=== PATIENT | male | born 1955 | race American Indian/Alaskan Native ===

== ENCOUNTER 2017-10-08 09:25 | Inpatient (IN) ==
[2017-10-02 12:30] LABS: Appearance,Urine CLOUDY; Bilirubin,Urine NEG (NEG); Color,Urine YELLOW; Glucose,Urine (UA) NEGATIVE (NEG); Leukocyte Esterase,Urine NEG /uL (NEG); Nitrate,Urine NEG (NEG); Protein,Urine NEG (NEG); Specific Gravity,Urine 1.012 (1.000-1.035); Urine Blood NEG mg/dL (<0.03); Urobilinogen,Urine NEG (NEG)
[2017-10-02 13:44] LABS: Blood Urea Nitrogen 20 mg/dl (8-23)
[2017-10-02 13:48] LABS: Basophils # (Auto) 0 K/mcL (0.0-0.3); Basophils % (Auto) 0.4 % (0.0-2.0); Eosinophils # (Auto) 0.2 K/mcL (0.0-0.7); Eosinophils % (Auto) 2.3 % (0.0-7.0); Granulocytes % (Auto) 61.2 % (38.0-78.0); Lymphocytes % (Auto) 24.5 % (15.5-49.0); Mean Cell Volume 92.9 fL (80.0-100.0); Mean Corpuscular HGB Conc 32.7 g/dL (31.0-36.0); Mean Corpuscular Hemoglobin 30.4 pg (26.0-34.0); Monocytes # (Auto) 0.9 K/mcL (0.1-0.9); Monocytes % (Auto) 11.6 % (1.0-12.0); Platelet Count 159 K/mcL (140-440); RBC 5.27 M/mcL (4.50-5.90); Red Cell Distribution Width 14.6 % (11.5-14.5)
[~2017-10-08 09:25] MED LIST: ACETAMINOPHEN 500 MG TABLET PO SCH; CELECOXIB 200 MG CAPSULE PO SCH; PREGABALIN 75 MG CAPSULE PO SCH; ceFAZolin 1 GM VIAL IV SCH; oxyCODONE 10 MG TAB.ER.12H PO SCH
[2017-10-08] MEDS ORDERED: LIDOCAINE HCL/PF 100 MG/5 ML SYRINGE IV ONE (10:55)
[2017-10-08] MEDS ORDERED: MIDAZOLAM 2 MG/2 ML VIAL IV ONE (10:55)
[2017-10-08] MEDS ORDERED: SUCCINYLCHOLINE 20 MG/ML ML IV ONE (10:55)
[2017-10-08] MEDS ORDERED: TRANEXAMIC ACID 1,000 MG/10 ML VIAL IV ONE ×2 (10:55→12:22)
[2017-10-08] MEDS ORDERED: GLYCOPYRROLATE 0.2 MG/ML VIAL IV ONE (10:55)
[2017-10-08] MEDS ORDERED: fentaNYL 100 MCG/2 ML VIAL IV ONE (10:55)
[2017-10-08] MEDS ORDERED: ONDANSETRON 4 MG/2 ML VIAL IV ONE (10:55)
[2017-10-08] MEDS ORDERED: PROPOFOL 200 MG/20 ML VIAL IV ONE (10:55)
[2017-10-08] MEDS ORDERED: DOXAPRAM HCL 20 MG/ML IV ONE (10:55)
[2017-10-08] MEDS ORDERED: KETAMINE 100 MG/ML ML IV ONE (10:55)
[2017-10-08] MEDS ORDERED: GENTAMICIN SULFATE 800 MG/20 ML VIAL IR ONE (11:28)
--- NOTE | 2017-10-08 12:20 | Brief Operative Note ---
Date of procedure: 10/08/17 Pre-op diagnosis: right shoulder rca and bicep tendon tear Post-op diagnosis: same Procedure: right reverse tsa and bicep tenodesis Grafts/Implants: Yes Anesthesia: GETA Complications: none Complications Description: 10/08/17 12:19 none Surgeon: Christian Torrez Flotation Tank Operator: Ryder Gutierrez
[2017-10-08] MEDS ORDERED: IPRATROPIUM/ALBUTEROL 3 ML AMPUL.NEB NEB PRN ×2 (12:22→16:13)
[2017-10-08] MEDS ORDERED: ONDANSETRON 4 MG/2 ML VIAL IV PRN ×3 (12:22→15:15)
[2017-10-08] MEDS ORDERED: BENZOCAINE/MENTHOL 1 LOZENGE PO PRN ×2 (12:22→15:15)
[2017-10-08] MEDS ORDERED: METHOCARBAMOL 1,000 MG/10 ML VIAL IV PRN (12:22)
[2017-10-08] MEDS ORDERED: POLYETHYLENE GLYCOL 3350 17 GM PACKET PO PRN ×2 (12:22→15:15)
[2017-10-08] MEDS ORDERED: FLEETS ADULT ENEMA PR PRN ×2 (12:22→15:15)
[2017-10-08] MEDS ORDERED: HYDROcodone/APAP 10/325MG TABLET PO PRN (12:22)
[2017-10-08] MEDS ORDERED: BISACODYL 10 MG SUPP.RECT PR PRN ×2 (12:22→15:15)
[2017-10-08] MEDS ORDERED: fentaNYL 100 MCG/2 ML VIAL IV PRN (12:22)
[2017-10-08] MEDS ORDERED: MEPERIDINE 25 MG/ML SYRINGE IV PRN (12:22)
[2017-10-08] MEDS ORDERED: KETOROLAC 15 MG/ML VIAL IV PRN ×2 (12:22→15:15)
[2017-10-08] MEDS ORDERED: MAGNESIUM HYDROXIDE 30 ML ORAL.SUSP PO PRN ×2 (12:22→15:15)
[2017-10-08] MEDS ORDERED: PROMETHAZINE 25 MG/ML VIAL IV PRN (12:22)
[2017-10-08] MEDS ORDERED: TEMAZEPAM 15 MG CAPSULE PO PRN ×2 (12:22→15:15)
[2017-10-08] MEDS ORDERED: HYDROmorphone 2 MG/ML SYRINGE IV PRN ×4 (12:22→15:15)
[2017-10-08] MEDS ORDERED: ACETAMINOPHEN 325 MG TABLET PO PRN ×2 (12:22→15:15)
[2017-10-08] MEDS ORDERED: 0.45 % SODIUM CHLORIDE 1,000 ML IV SCH ×2 (12:30→15:15)
[2017-10-08] MEDS ORDERED: LACTATED RINGERS 1,000 ML IV SCH (12:30)
--- NOTE | 2017-10-08 12:51 | Operative Note ---
DATE OF OPERATION: 10/08/2017 PREOPERATIVE DIAGNOSIS: Right shoulder rotator cuff arthropathy and biceps tendinopathy. POSTOPERATIVE DIAGNOSIS: Right shoulder rotator cuff arthropathy and biceps tendinopathy. PROCEDURE: Right reverse total shoulder and biceps tenodesis. SURGEON: Christian Torrez MD ENVIRONMENTAL SERVICES COORDINATOR: Ryder Gutierrez PA-C ANESTHESIA: General LMA anesthesia. COMPLICATIONS: None. IMPLANTS: A size 40 glenosphere with Metaglene with a central screw measuring 40, peripheral screws measuring 24, 40 and 36. The stem was an 11 mm cementless stem with a standard thickness poly. COMPLICATIONS: None. ESTIMATED BLOOD LOSS: About 100 mL DESCRIPTION OF PROCEDURE: The patient was brought to the operating room and put to sleep with general LMA anesthesia. Once asleep, the patient had the right shoulder sterilely prepped and draped in the usual sterile fashion. A timeout was performed and confirmed this as the operative site. Ioban was placed over the skin. Preop antibiotics and tranexamic acid were given. We then proceeded with the case. An incision anteriorly was made, a deltopectoral approach was performed. Deltoid was retracted laterally and conjoint tendon medially. We released the subscap and biceps tendon was dislocated out of the bicipital groove and it was released and then repaired to the pectoralis major with 2 [id number] Ethibond stitches. We irrigated thoroughly and then dislocated the humeral head. We made our neck cut at the anatomical neck region, 30 degrees of retroversion and then we irrigated and subluxed the head posteriorly. We performed a 360 degree capsular release. We removed the labrum and the remnants of the biceps tendon, inferiorly released the capsule and released this back about 1 cm. We then placed a pin centrally in the glenoid, 10 degrees of inclination and reamed up to the size 40. We then placed the Metaglene into the bone. The central screw measured 40 mm with excellent purchase. Once done, we then placed screws. These measured 24, 36 and 40. These locked into place. We placed a 40 mm glenosphere with 2 mm of offset. Once this was done, we irrigated thoroughly and then prepared the humerus. This was broached up to size 11. We trialed the 11 and then placed the size 11 stem with a standard thickness poly. The patient tolerated this well. There was no complication. The shoulder was reduced. Full range of motion was achieved. We irrigated and repaired the deltopectoral approach with 2-0 Vicryl and closed the skin with 2-0 Vicryl and adhesive closure. The patient tolerated this well. The patient was fitted and given a DonJoy sling at the end of the case. RBH:ochoa Job ID: [id number] Doc ID: [id number] Christian Torrez MD
[2017-10-08] MEDS ORDERED: BUPIVACAINE W/EPI 0.5% 50 ML VIAL IJ ONE (13:05)
[2017-10-08] MEDS ORDERED: methylPREDNISolone SOD SUCC 125 MG/2 ML VIAL IV ONE (13:12)
[2017-10-08] MEDS ORDERED: 0.9 % SODIUM CHLORIDE 10 ML SYRINGE IV SCH (14:00)
--- NOTE | 2017-10-08 14:36 | XRay Report ---
CLINICAL INFORMATION: Dyspnea - postop COMPARISON: None. FINDINGS: The heart is borderline enlarged but accentuated by lordotic positioning, rotation and portable technique. Mediastinum and pulmonary vessels are normal. There is mild patchy airspace disease in both bases - more prominent on the right which is likely atelectasis. Early aspiration not excluded. No effusion IMPRESSION: Moderate right and mild left patchy bibasilar airspace disease likely atelectasis. Aspiration is possible, but less likely. Interpreted and Authenticated by: Con Mathews 10/08/17
--- NOTE | 2017-10-08 14:45 | XRay Report ---
CLINICAL INFORMATION: Post-OP Total Shoulder COMPARISON: None. FINDINGS: Total shoulder prostheses is anatomically aligned. No osseous normality. Soft tissues swelling seen as expected IMPRESSION: Negative Interpreted and Authenticated by: Con Mathews 10/08/17
[2017-10-08] MEDS ORDERED: ceFAZolin 1 GM VIAL IV SCH ×2 (15:15→19:00)
[2017-10-08] MEDS ORDERED: ACETAMINOPHEN 500 MG TABLET PO SCH (15:15)
[2017-10-08] MEDS ORDERED: CELECOXIB 200 MG CAPSULE PO SCH (15:15)
[2017-10-08] MEDS ORDERED: PREGABALIN 75 MG CAPSULE PO SCH (15:15)
[2017-10-08] MEDS ORDERED: oxyCODONE 10 MG TAB.ER.12H PO SCH (15:15)
[2017-10-08] MEDS ORDERED: 0.9 % SODIUM CHLORIDE 1,000 ML IV ONE (16:06)
--- NOTE | 2017-10-08 16:12 | Internal Med History&Physical ---
Medical - H&P: HPI Patient information: Note initiated : 10/08/17 at 4:06 pm Service Date, if different from initiated Date: [] Patient: Tucker Wade a 62 y/o M admitted on 10/08/17 for Right Reverse Total Shoulder with biceps tendon. Chief Complaint: [] History of present illness: Mr. Wade is a 62 year old Male with h/o shoulder pain, DM, HTN, HLD, Chr smoker , was admitted to the hospital by Dr Torrez for elective right shoulde arthroplasty. The patient after surgery, was in respiratory distress, with elkin exp wheezing, the patient was drowsy. His ABG showed Ph 7.12/97/67, Patient was placed on bipap, duonebs given and solumedrol given, x ray chest done, Medicine was consulted for further management. On my eval in the PCU the patient was awake/ aoox3 and was on nasal canula 3L 92 %, he did not have any complaints except dryness of mouth and pain in the right shoulder. The patient has chr cough, but d enies any chest pain, fever, chills or any other issues before the surgery The patient has a > 50 yr history of heavy smoking, has been told that he likely has copd, and was advised to use inhalers, I did not find the inhalers on the patients medication list. The patient on the ICU, had repeat ABG done which showed PH 7.24/70/54, lactate was elevated at 3.4, Chest X ray shows right side infiltrate, atlectasis vs aspiration pna. Patient placed back on bipap therapy, IV fluids, IV antibiotics and Blood cx done. All systems: reviewed and no additional remarkable complaints except as stated ( as per HPI) Medical - H&P: PMH Medical history: HTN DM HLD COPD Surgical history: Left hip replacement Carpal tunnel surgery Tonsillectomy Pertinent family history: Father with CAd, [place], DM mother with DM cancer, Social history: smoker heavy ex heavy etoh [employer] user Medical - H&P: Meds Home Medications Medication Instructions Recorded Confirmed Type Aspirin 81 mg CHEWED DAILY 12/28/16 10/08/17 History Chlorthalidone [Hygroton] 25 mg PO DAILY 12/28/16 10/08/17 History Ergocalciferol (Vitamin D2) 50,000 unit PO Q2W 12/28/16 10/08/17 History [Vitamin D2] Fenofibrate Nanocrystallized 160 mg PO DAILY 12/28/16 10/08/17 History [Triglide] Fish Oil 1,000 mg PO DAILY 12/28/16 10/08/17 History Irbesartan [Avapro] 300 mg PO DAILY 12/28/16 10/08/17 History Rosuvastatin Calcium [Crestor] 40 mg PO DAILY 12/28/16 10/08/17 History metFORMIN [Glucophage] 750 mg PO ACB 12/28/16 10/08/17 History Cyanocobalamin (Vitamin B-12) 1,000 mcg PO DAILY 10/02/17 10/08/17 History [Vitamin B-12] Multivit,Ther Iron,Ca,FA & Min 1 tab PO DAILY 10/02/17 10/08/17 History [Multivitamin W/Minerals] Omeprazole [PriLOSEC] 20 mg PO BIDAC 10/02/17 10/08/17 History HYDROcodone/APAP 10/325MG [[place] 1 - 2 tab PO Q4H PRN #60 tab 10/08/17 Rx 10/325Mg] Allergies Allergy/AdvReac Type Severity Reaction Status Date / Time No Known Drug Allergies Allergy Verified 01/01/17 09:48 Medical - H&P: Exam - Constitutional Vitals: Temp Pulse Resp BP Pulse Ox 98.1 F 76 22 149/69 98 10/08/17 14:49 10/08/17 15:10 10/08/17 15:10 10/08/17 14:49 10/08/17 15:10 Exam: GENERAL: The patient is a well-developed, well-nourished in no apparent distress. Is alert and oriented x3. VITAL SIGNS: Reviewed and as noted elsewhere. HEENT: Head is normocephalic and atraumatic. Extraocular muscles are intact. Pupils are equal, round, and reactive to light. Nares appeared normal. Mouth appears any without lesions. Mucous membranes are dry NECK: Normal to inspection, Supple, No lymphadenopathy or thyromegaly. LUNGS: Air entry equal on both sides but bilaterally significantly decreased, proloned exp breath shouds, elkin exp mild wheezing no crackles or rhonchi noted. No accessory muscles of respiration HEART: Regular rate and rhythm normal, S1 and S2 heard, no Gallop, S3 or Rub Noted, No Gross murmur heard. ABDOMEN: Soft, nontender, and nondistended. Positive bowel sounds. No hepatosplenomegaly was noted. EXTREMITIES: No cyanosis, clubbing, rash, lesions or edema. NEUROLOGIC: Cranial nerves II through XII are grossly intact. Motor and Sensory System Grossly Intact PSYCHIATRIC: Normal affect, Normal Mood. Appropriate Behavior. SKIN: No ulceration or wounds noted, No jaundice, No rash noted. Medical - H&P: Reslt - Labs CBC & Chem 7: 10/02/17 10:52 10/02/17 10:52 Medical - H&P: A/P - Narrative A/P Narrative: A/P Acute hypoxic, Hypercapnic Resp failure: On bipap for now, 12/6 FIo2 40, weak off as tolerated, if fails bipap, will intubate. Acute copd exacerbation: Duonebs, IV steroids and antibiotics, bipap for now, monitor resp status, Aspiration Pneumonia? : X ray suggesive of possible pna, check blood cx, cbc, inpatient panel, and procalcitonin. DM: Hold metformin, Sliding scale insulin for now, start on lantus if needed. HTN: BP stable, resume home bp meds, HLD: resume home dose of statin Post shoulder replacement surgery: Management as per ortho DVT as per ortho Medical - H&P: Qual - VTE Deep Vein Thrombosis/Pulmonary Embolism Present on Admission: No
[2017-10-08] MEDS ORDERED: DEXTROSE 50% 50 ML VIAL IV PRN (16:50)
[2017-10-08] MEDS ORDERED: DEXTROSE 31 GM ORAL.SUSP PO PRN (16:50)
[2017-10-08] MEDS: PIPERACILLIN SODIUM/TAZOBACTAM 3.375 GM in DEXTROSE 5% IN WATER 50 ML IV SCH ×2 (16:58→19:53)
[2017-10-08] MEDS ORDERED: OMEPRAZOLE 20 MG CAPSULE PO SCH (17:00)
[2017-10-08] MEDS: INSULIN LISPRO 1 UNIT/0.01 ML UNIT SQ SCH ×2 (17:00→20:48)
[2017-10-08] MEDS: NACL 0.9% W/KCL 20MEQ 1,000 ML IV SCH (17:04)
[2017-10-08] MEDS: OMEPRAZOLE 20 MG CAPSULE PO SCH (17:05)
[2017-10-08 17:07] LABS: Basophils # (Auto) 0 K/mcL (0.0-0.3); Basophils % (Auto) 0.2 % (0.0-2.0); Eosinophils # (Auto) 0 K/mcL (0.0-0.7); Eosinophils % (Auto) 0.1 % (0.0-7.0); Granulocytes % (Auto) 90.6 % (38.0-78.0); Lymphocytes # (Auto) 0.8 K/mcL (1.5-4.8); Lymphocytes % (Auto) 4.9 % (15.5-49.0); Mean Cell Volume 93.4 fL (80.0-100.0); Mean Corpuscular HGB Conc 32.4 g/dL (31.0-36.0); Mean Corpuscular Hemoglobin 30.2 pg (26.0-34.0); Monocytes # (Auto) 0.7 K/mcL (0.1-0.9); Monocytes % (Auto) 4.2 % (1.0-12.0); Platelet Count 142 K/mcL (140-440); RBC 4.97 M/mcL (4.50-5.90); Red Cell Distribution Width 14.6 % (11.5-14.5)
[2017-10-08 17:23] LABS: ALT/SGPT 26 U/l (0-40); Albumin 4.4 gm/dL (3.2-5.2); Albumin/Globulin Ratio 2.3 (1.0-2.3); Alkaline Phosphatase 25 U/L (39-117); Bilirubin,Direct < 0.2 mg/dL (0.0-0.3); Blood Urea Nitrogen 21 mg/dl (8-23); Gamma Glutamyl Transpeptidase 22 U/L (8-61); Magnesium 1.5 mg/dL (1.6-2.5); Uric Acid 6.1 mg/dL (2.5-8.0)
[2017-10-08] MEDS: HYDROcodone/APAP 10/325MG TABLET PO PRN ×3 (17:41→23:00)
[2017-10-08] MEDS: IPRATROPIUM/ALBUTEROL 3 ML AMPUL.NEB NEB SCH ×3 (19:23→22:56)
[2017-10-08] MEDS: ceFAZolin 1 GM VIAL IV SCH (19:53)
[2017-10-08] MEDS ORDERED: MAGNESIUM SULFATE 2 GM/50 ML BAG IV ONE (19:58)
[2017-10-08] MEDS: DOCUSATE SODIUM 100 MG CAPSULE PO SCH (20:48)
[2017-10-08] MEDS ORDERED: SENNOSIDES 1 TABLET PO SCH ×2 (21:00)
[2017-10-08] MEDS ORDERED: SIMVASTATIN 40 MG TABLET PO SCH ×2 (21:00)
[2017-10-08] MEDS ORDERED: DOCUSATE SODIUM 100 MG CAPSULE PO SCH (21:00)
[2017-10-08] MEDS: 0.9 % SODIUM CHLORIDE 10 ML SYRINGE IV SCH (21:38)
[2017-10-08] MEDS: methylPREDNISolone SOD SUCC 125 MG/2 ML VIAL IV SCH (21:38)
[2017-10-09] MEDS: PIPERACILLIN SODIUM/TAZOBACTAM 3.375 GM in DEXTROSE 5% IN WATER 50 ML IV SCH ×3 (00:10→14:24)
[2017-10-09] MEDS: IPRATROPIUM/ALBUTEROL 3 ML AMPUL.NEB NEB SCH ×3 (02:45→10:47)
[2017-10-09] MEDS: NACL 0.9% W/KCL 20MEQ 1,000 ML IV SCH ×2 (04:02→10:34)
[2017-10-09] MEDS: ceFAZolin 1 GM VIAL IV SCH (04:07)
[2017-10-09] MEDS: 0.9 % SODIUM CHLORIDE 10 ML SYRINGE IV SCH ×2 (05:37→14:23)
[2017-10-09] MEDS: methylPREDNISolone SOD SUCC 125 MG/2 ML VIAL IV SCH (05:41)
[2017-10-09] MEDS: HYDROcodone/APAP 10/325MG TABLET PO PRN ×2 (05:48→14:22)
[2017-10-09] MEDS ORDERED: metFORMIN 500 MG TABLET PO SCH (07:30)
[2017-10-09] MEDS: OMEPRAZOLE 20 MG CAPSULE PO SCH (07:43)
[2017-10-09] MEDS: INSULIN LISPRO 1 UNIT/0.01 ML UNIT SQ SCH ×2 (07:49→11:39)
[2017-10-09] MEDS: DOCUSATE SODIUM 100 MG CAPSULE PO SCH (07:55)
[2017-10-09 08:58] LABS: Basophils # (Auto) 0 K/mcL (0.0-0.3); Basophils % (Auto) 0 % (0.0-2.0); Eosinophils # (Auto) 0 K/mcL (0.0-0.7); Eosinophils % (Auto) 0 % (0.0-7.0); Granulocytes % (Auto) 90.3 % (38.0-78.0); Lymphocytes # (Auto) 0.7 K/mcL (1.5-4.8); Lymphocytes % (Auto) 3.9 % (15.5-49.0); Mean Corpuscular HGB Conc 32.6 g/dL (31.0-36.0); Mean Corpuscular Hemoglobin 30.3 pg (26.0-34.0); Monocytes % (Auto) 5.8 % (1.0-12.0); Platelet Count 155 K/mcL (140-440); RBC 4.98 M/mcL (4.50-5.90); Red Cell Distribution Width 14.5 % (11.5-14.5)
[2017-10-09] MEDS ORDERED: FISH OIL 1,000 MG CAPSULE PO SCH ×2 (09:00)
[2017-10-09] MEDS ORDERED: LOSARTAN 50 MG TABLET PO SCH ×2 (09:00)
[2017-10-09] MEDS ORDERED: CHLORTHALIDONE 25 MG TABLET PO SCH ×2 (09:00)
[2017-10-09] MEDS ORDERED: FENOFIBRATE 43 MG CAPSULE PO SCH ×2 (09:00)
[2017-10-09] MEDS ORDERED: CYANOCOBALAMIN (VITAMIN B-12) 500 MCG TABLET PO SCH ×2 (09:00)
[2017-10-09] MEDS ORDERED: ASPIRIN 81 MG TAB.CHEW CHEWED SCH ×2 (09:00)
[2017-10-09] MEDS ORDERED: MULTIVIT,THER IRON,CA,FA & MIN 1 TABLET PO SCH ×2 (09:00)
[2017-10-09 09:20] LABS: ALT/SGPT 29 U/l (0-40); Albumin 4.5 gm/dL (3.2-5.2); Albumin/Globulin Ratio 1.9 (1.0-2.3); Alkaline Phosphatase 25 U/L (39-117); Bilirubin,Direct < 0.2 mg/dL (0.0-0.3); Blood Urea Nitrogen 19 mg/dl (8-23); Gamma Glutamyl Transpeptidase 23 U/L (8-61); Magnesium 1.8 mg/dL (1.6-2.5); Uric Acid 5.1 mg/dL (2.5-8.0)
[2017-10-09] MEDS ORDERED: POTASSIUM PHOSPHATE 40 MEQ in DEXTROSE 5% IN WATER 500 ML IV ONE (10:04)
[2017-10-09] MEDS ORDERED: POTASSIUM PHOSPHATE 40 MEQ in 0.9 % SODIUM CHLORIDE 500 ML IV ONE (10:30)
--- NOTE | 2017-10-09 10:52 | Discharge Summary ---
Medical - DS: Prov Patient information: Note initiated : 10/09/17 at 10:48 am Service Date, if different from initiated Date: [] Patient: Tucker Wade 62 y/o M admitted on 10/08/17 for Right Reverse Total Shoulder with biceps tendon. Chief Complaint: [] Date of admission: 10/08/17 09:25 Discharge date: 10/09/17 Primary care physician: Marques Pike Discharging clinician: Bobby Bernard Medical - DS: Meds - Discharge Medications Prescriptions: Albuterol Sulfate [Ventolin] 2 puff INH Q4 #1 inhaler HYDROcodone/APAP 10/325MG [[place] 10/325Mg] 1 - 2 tab PO Q4H PRN #60 tab PRN Reason: Pain Levofloxacin [Levaquin] 750 mg PO DAILY #5 tab predniSONE [Prednisone] 40 mg PO QAMCC #6 tab Active and Home Medications: Home Medications Aspirin 81 mg CHEWED DAILY 12/28/16 [History Confirmed 10/08/17 Last Taken 09/28] Chlorthalidone [Hygroton] 25 mg PO DAILY 12/28/16 [History Confirmed 10/08/17 Last Taken 10/07/17 08:00] Ergocalciferol (Vitamin D2) [Vitamin D2] 50,000 unit PO Q2W 12/28/16 [History Confirmed 10/08/17 Last Taken 10/05/17] Fenofibrate Nanocrystallized [Triglide] 160 mg PO DAILY 12/28/16 [History Confirmed 10/08/17 Last Taken 10/07/17 08:00] Fish Oil 1,000 mg PO DAILY 12/28/16 [History Confirmed 10/08/17 Last Taken 10/07 08:00] Irbesartan [Avapro] 300 mg PO DAILY 12/28/16 [History Confirmed 10/08/17 Last Taken 10/07/17 08:00] Rosuvastatin Calcium [Crestor] 40 mg PO DAILY 12/28/16 [History Confirmed Last Taken 10/07/17 08:00] metFORMIN [Glucophage] 750 mg PO ACB 12/28/16 [History Confirmed 10/08/17 Last Taken 10/07/17 08:00] Cyanocobalamin (Vitamin B-12) [Vitamin B-12] 1,000 mcg PO DAILY 10/02/17 [ History Confirmed 10/08/17 Last Taken Unknown] Multivit,Ther Iron,Ca,FA & Min [Multivitamin W/Minerals] 1 tab PO DAILY [History Confirmed 10/08/17 Last Taken 10/07/17 08:00] Omeprazole [PriLOSEC] 20 mg PO BIDAC 10/02/17 [History Confirmed 10/08/17 Last Taken Unknown] HYDROcodone/APAP 10/325MG [[place] 10/325Mg] 1 - 2 tab PO Q4H PRN #60 tab [Rx Last Taken Unknown] Albuterol Sulfate [Ventolin] 2 puff INH Q4 #1 inhaler 10/09/17 [Rx Last Taken Unknown] Levofloxacin [Levaquin] 750 mg PO DAILY #5 tab 10/09/17 [Rx Last Taken Unknown] predniSONE [Prednisone] 40 mg PO QAC #6 tab 10/09/17 [Rx Last Taken Unknown] Medical - DS: Hosp Hospital course: Mr. Wade is a 62 year old Male with h/o shoulder pain, DM, HTN, HLD, Chr smoker , was admitted to the hospital by Dr Torrez for elective right shoulde arthroplasty. The patient after surgery, was in respiratory distress, with elkin exp wheezing, the patient was drowsy. His ABG showed Ph 7.12/97/67, Patient was placed on bipap, duonebs given and solumedrol given, x ray chest done, Medicine was consulted for further management. On my eval in the PCU the patient was awake/ aoox3 and was on nasal canula 3L 92 %, he did not have any complaints except dryness of mouth and pain in the right shoulder. The patient has chr cough, but d enies any chest pain, fever, chills or any other issues before the surgery The patient has a > 50 yr history of heavy smoking, has been told that he likely has copd, and was advised to use inhalers, I did not find the inhalers on the patients medication list. The patient on the ICU, had repeat ABG done which showed PH 7.24/70/54, lactate was elevated at 3.4, Chest X ray shows right side infiltrate, atlectasis vs aspiration pna. Patient placed back on bipap therapy, IV fluids, IV antibiotics and Blood cx done. The patient refused use of bipap overnight, but he did use duonebs on a regular basis, he had leucocytosis on labs and had possible pna on chest x ray, he was started on broad spectrum antibiotics, this AM his condition improved significantly His blood gases (venous) show Ph of 7.44/48 and his exam had clear breath sounds with no wheezing. he had low phosphate on todays labs which is being replaced. The patient is adamant that he go home today, and will sign out AMA if not allowed to leave, I will discharge him home with oral antibiotics and short course of steroids. His Ortho follow up / PT / Wound care is as per Ortho Discharge diagnosis: shoulde replacement, COPD exacerbation/ Pneumonia - Time Spent with Patient Total time spent providing and/or coordinating discharge services: Greater than 30 minutes Medical - DS: Exam - Constitutional Vitals: Vital Signs Temp Pulse Pulse Resp BP BP Pulse Ox 10/09/17 08:12 83 25 H 165/80 92 10/09/17 08:00 91 10/09/17 07:18 73 26 H 92 10/09/17 07:01 98.0 F 69 16 139/66 96 10/09/17 06:42 68 16 97 10/09/17 06:01 78 16 140/84 94 10/09/17 05:01 21 150/75 93 10/09/17 04:01 97.8 F 20 127/90 93 10/09/17 03:01 17 131/67 93 10/09/17 02:01 20 129/114 95 10/09/17 01:01 19 119/57 91 10/09/17 00:01 98.4 F 17 132/63 92 10/08/17 23:03 19 137/71 100 10/08/17 23:01 75 18 10/08/17 22:01 21 132/105 94 10/08/17 21:01 25 H 136/73 93 10/08/17 20:03 98.2 F 24 H 125/77 92 10/08/17 20:00 92 10/08/17 19:27 65 18 10/08/17 19:23 94 10/08/17 19:03 22 133/67 87 L 10/08/17 18:02 25 H 157/80 95 10/08/17 17:38 83 20 154/99 10/08/17 16:48 71 14 10/08/17 16:43 69 18 98 10/08/17 16:27 98.6 F 14 105/92 93 10/08/17 15:10 97.5 F 76 75 10 L 159/84 99 10/08/17 14:49 98.1 F 85 19 149/69 95 10/08/17 14:34 89 18 153/73 93 10/08/17 14:20 88 18 156/69 91 10/08/17 14:05 87 18 155/76 91 10/08/17 14:00 21 93 10/08/17 13:51 91 H 20 140/76 96 10/08/17 13:35 95 H 20 139/62 90 10/08/17 13:20 101 H 22 168/92 89 L 10/08/17 13:03 98.0 F 117 H 24 H 193/82 88 L Intake and Output 10/08/17 10/09/17 10/09/17 21:59 05:59 13:59 Intake Total 1230 / 1230 2755 / 2755 350 / 350 Output Total 625 / 625 2260 / 2260 1050 / 1050 Balance 605 / 605 495 / 495 -700 / -700 Intake: IV 100 / 100 1050 / 1050 50 / 50 NaCl 0.9% W/KCl 20Meq 1000ML 1, 1000 / 1000 000 ml @ 150 mls/hr IV .Q6H40M [facility] Rx#:[id number] Zosyn 3.375 gm In Dextrose 5% 100 / 100 50 / 50 50 / 50 in Water 50 ml @ 100 mls/hr IV Q6H [facility] Rx#:[id number] Oral 1030 / 1030 1705 / 1705 300 / 300 IV - Manual Only 100 / 100 Output: Urine Catheter Amount 0 / 0 Void Amount 625 / 625 2260 / 2260 1050 / 1050 Other: Meal Dinner [place] and milk Breakfast Percent of Meal Consumed 100% 100% 100% Feeding Ability Independent Independent # Voids 0 Weight 233 lb 1.6 oz Additional comments: Constitutional; Afebrile, cooperative, alert, not in distress. Eyes- No icterus, , No periorbital swelling Ears- Ext ear normal, hearing normal to conversation. Neck- Midline trachea, supple Respiratory system: Air Entry equal on both sides, No crackles or wheezing, no rhonchi. CVS- Rate rhythm regular, S1,S2 heard, no gallop, no rub. Abdomen- Soft nontender abdomen, no organomegaly, no tenderness, no guarding or rigidity, BUTTON TUFTER- AOOx3, moving all extremities, no gross focal deficit noted. Medical - DS: Data Labs on day of discharge: Labs from last 24 hours 10/09/17 10/09/17 10/08/17 08:19 08:19 16:26 WBC 17.4 H RBC 4.98 Hgb 15.1 Hct 46.3 MCV 93.0 MCH 30.3 MCHC 32.6 RDW 14.5 Plt Count 155 MPV 10.1 Gran % 90.3 H Lymph % (Auto) 3.9 L [place] % (Auto) 5.8 Eos % (Auto) 0 Baso % (Auto) 0 Gran # 15.7 H Lymph # (Auto) 0.7 L [place] # (Auto) 1.0 H Eos # (Auto) 0 Baso # (Auto) 0 Sodium 138 Potassium 4.3 Chloride 97 Carbon Dioxide 25 Anion Gap 16.0 BUN 19 Creatinine 1.0 GFR Calculation 80 Glucose 192 H Uric Acid 5.1 Calcium 9.1 Phosphorus 1.1 L Magnesium 1.8 Total Bilirubin 0.2 Direct Bilirubin < 0.2 GGT 23 AST 60 H ALT 29 Alkaline Phosphatase 25 L Lactate Dehydrogenase 320 H Total Protein 6.9 Albumin 4.5 Globulin 2.4 Albumin/Globulin Ratio 1.9 Triglycerides 97 Procalcitonin < 0.05 10/08/17 10/08/17 16:26 16:26 WBC 15.6 H RBC 4.97 Hgb 15.0 Hct 46.4 MCV 93.4 MCH 30.2 MCHC 32.4 RDW 14.6 H Plt Count 142 MPV 10.1 Gran % 90.6 H Lymph % (Auto) 4.9 L [place] % (Auto) 4.2 Eos % (Auto) 0.1 Baso % (Auto) 0.2 Gran # 14.1 H Lymph # (Auto) 0.8 L [place] # (Auto) 0.7 Eos # (Auto) 0 Baso # (Auto) 0 Sodium 138 Potassium 4.4 Chloride 99 Carbon Dioxide 22 Anion Gap 17.0 H BUN 21 Creatinine 1.0 GFR Calculation 80 Glucose 177 H Uric Acid 6.1 Calcium 8.5 L Phosphorus 3.3 Magnesium 1.5 L Total Bilirubin < 0.2 Direct Bilirubin < 0.2 GGT 22 AST 29 ALT 26 Alkaline Phosphatase 25 L Lactate Dehydrogenase 241 Total Protein 6.3 Albumin 4.4 Globulin 1.9 L Albumin/Globulin Ratio 2.3 Triglycerides 102 Procalcitonin Medical - DS: A/P - Patient/Caregiver Discharge Instructions Activity: as per physical therapy, increase activity as tolerated Diet: Consistent Carbohydrate Additional Instructions: Discharge Instructions: Do the exercises at home that physical therapy gave you. Your appointment has been made with [facility] for Take your prescription, photo ID, insurance cards, and current medication list with you to your first physical therapy appointment. Take your prescription to flower buncher or picker any medication or equipment, Your pain medication, and Your brace. Wear comfortable clothing for your physical therapy. Weight bearing as tolerated. You have Dermabond (a dressing with a mesh-like appearance), leave open to air. You may start showering on post op day #2, . The Dermabond dressing can get wet, do not scrub dressing. Pat dry. To avoid constipation while taking any narcotic pain medication, take an over the counter stool softener/laxative. Call your physician for fevers above 100.5 or pain not controlled by medication. Your prescriptions are with your discharge information. Some medications were electronically transmitted to your pharmacy of choice. Take your meidcations as prescribed, you likely have a pneumonia, and need antibiotics, Take levofloxacin for additional 3 days, You also have copd exacerbatin and would benefit from a short course of prednisone, I have prescribed same for another 3 days take your inhalers every 4 hrs for 5 days, then every 4hrs as needed Go to the ER if worsening symtoms, chest pain or shortness of breath Follow up with PCP in 1 week . Prescriptions: Albuterol Sulfate [Ventolin] 2 puff INH Q4 #1 inhaler HYDROcodone/APAP 10/325MG [[place] 10/325Mg] 1 - 2 tab PO Q4H PRN #60 tab PRN Reason: Pain Levofloxacin [Levaquin] 750 mg PO DAILY #5 tab predniSONE [Prednisone] 40 mg PO [facility] #6 tab Other Amb Orders: Physical Therapy at Discharge - TSA Location: Determined By Patient Brace/Splint Location: Determined By Patient - Follow up Plan Disposition: Home, Self-Care Prognosis: Fair Rehab Potential: Fair I certify that the patient requires SNF services: No Overall status at discharge: patient is progressing back to baseline Medical - DS: Qual - VTE Deep Vein Thrombosis/Pulmonary Embolism Present on Admission: No
[2017-10-22] MEDS ORDERED: ERGOCALCIFEROL (VITAMIN D2) 50,000 UNIT CAPSULE PO SCH (09:00)
== END 2017-10-09 15:15 | disposition home or self-care (01) | DRG 483 ==
LOC: MEDSUR 09:25 → ICU 15:09
PROVIDERS: ADMIT Internal Medicine; ATTEND Internal Medicine